=== PATIENT | female | born 1965 | race Caucasian/White ===

== ENCOUNTER → 2021-02-21 | Outpatient (CLI) | payer SELFPAY ==
[~2021-02-21] MED LIST: BIRTH CONTROL1 EAC1 PO; MOTRIN800 MG PO; Motrin,Rufen800 MG PO; TRAMADOL HCL50 MG PO; TRIMOX500 MG PO
== END | disposition home or self-care (01) ==
LOC: COVID19 11:22
PROVIDERS: ATTEND Internal Medicine
DX: U07.1 COVID-19 (principal)

== ENCOUNTER 2024-12-08 20:14 | Emergency (ER) | payer SELFPAY ==
[~2024-12-08] VITALS: Ht 167.6 cm; Wt 83.9 kg
[2024-12-08] MEDS ORDERED: PREDNISONE20 M1 PO (22:00)
[2024-12-08] MEDS ORDERED: ZITHROMAX250 MG PO (22:00)
[2024-12-08] MEDS ORDERED: methylPREDNISolone sod succ 125 MG VIAL IM ONE (22:10)
== END 2024-12-08 22:05 | disposition home or self-care (01) ==
LOC: ED 20:14
DX: J20.8 Acute bronchitis due to other specified organisms (principal); Z20.822 Contact with and (suspected) exposure to COVID-19; Z98.890 Other specified postprocedural states